=== PATIENT | female | born 1985 | race Caucasian/White ===

== ENCOUNTER 2020-08-25 00:57 | Observation (INO) | payer OTHER ==
[~2020-08-25] VITALS: Ht 157.5 cm; Wt 59.0 kg
[2020-08-25 01:06] VITALS: BP 99/42
[2020-08-25 01:33] LABS: URINE BILIRUBIN NEGATIVE (Negative); URINE BLOOD NEGATIVE (Negative); URINE CLARITY CLEAR; URINE COLOR YELLOW; URINE GLUCOSE-RANDOM NEGATIVE (Negative); URINE KETONES NEGATIVE (Negative); URINE LEUKOCYTES-REFLEX NEGATIVE (Negative); URINE NITRITE-REFLEX NEGATIVE (Negative); URINE PROTEIN NEGATIVE (Negative); URINE SPECIFIC GRAVITY 1.025 (1.005-1.030); URINE UROBILINOGEN 0.2 E.U./dl (0.2-1.0)
[2020-08-25 02:56] LABS: HEMATOCRIT 34.6 % (37.0-47.0); HEMOGLOBIN 11.4 gm/dL (12.0-15.0); MCH 30.1 pg (26.0-34.0); MCV 91.4 fL (80.0-100.0); MPV 9.5 fl. (7.2-11.1); NUCLEATED RBCS 0 /100WBC; PLATELET COUNT* 193 thou/uL (150-400); RBC 3.79 mil/uL (4.20-5.00); RDW-CV 14.2 % (10.5-14.5)
[2020-08-25 03:07] LABS: CALCIUM 8.5 mg/dL (8.5-10.1); CREATININE 0.7 mg/dL (0.6-1.3); POTASSIUM 3.9 mmol/L (3.5-5.1)
[2020-08-25 03:11] LABS: ALBUMIN 3.6 g/dL (3.4-5.0); TOTAL BILIRUBIN 0.3 mg/dL (<0.1-1.0); TOTAL PROTEIN 7.3 g/dL (6.4-8.2)
[2020-08-25 07:12] LABS: ABSOLUTE LYMPHOCYTES 1.7 thou/uL (0.8-5.3); ABSOLUTE MONOCYTES 0.6 thou/uL (0.0-1.2); ABSOLUTE NEUTROPHILS 11.8 thou/uL (1.6-8.1)
[2020-08-25 07:13] LABS: PLATELET ESTIMATE ADEQUATE
[2020-08-25 08:34] VITALS: BP 100/53
[2020-08-25] MEDS ORDERED: OXYCODONE HCL 55 MG PO (14:32)
[2020-08-25 14:35] VITALS: BP 100/53
--- NOTE | 2020-08-26 19:56 | OP ---
[address] [address] OPERATIVE REPORT Name: JESSA NICOLE Room: [address] Samuel#: [id number] Admission: 08/25/20 Attend Phys: Araceli Malcolm Discharge: Date of : 89 Report #: [id number] THIS REPORT FOR: //name// cc: JARAD Connell family physician/PCP JARAD Connell family physician/PCP ~ CC: JARAD physician/PCP Oliver Saleem DICTATED BY: Rio Goodrich DO DATE OF SERVICE: 08/25/2020 PREOPERATIVE DIAGNOSIS: Acute appendicitis. POSTOPERATIVE DIAGNOSIS: Acute appendicitis with localized peritonitis. SURGEON: Oliver Saleem DO THEORETICAL PHYSICIST: Rio Goodrich, PGY5 OPERATION PERFORMED: Laparoscopic appendectomy. ANESTHESIA: General, local. ESTIMATED BLOOD LOSS: 10 mL. SPECIMEN: Appendix. COMPLICATIONS: None. INDICATIONS: The patient is a 34-year-old female that presented to the Emergency Department with right-sided abdominal pain and nausea. She was found on CT to have findings of acute appendicitis. She was informed of the risks and benefits of laparoscopic appendectomy with risks including but not limited to bleeding, infection, bowel injury, bladder injury. She understood these risks and decided to proceed with surgery. DESCRIPTION OF PROCEDURE: After informed consent was obtained, the patient was brought to the operating room and placed in supine position. SCDs were on and running. Preoperative Zosyn had been delivered in ED. The patient was induced with general anesthesia. The patient was prepped and draped in the usual sterile fashion. A surgical pause was held to confirm proper patient and procedure. 0.5% Marcaine was injected beneath the umbilicus. The infraumbilical skin was elevated with 2 Adson's and incised with an 11 blade. Dissection was bluntly carried down to the fascia. Fascia was incised using cautery and elevated with 2 Kochers. Peritoneum was blunt[place] [address] OPERATIVE REPORT Name: JESSA NICOLE Room: [address] Altaf Baker#: [id number] Admission: 08/25/20 Attend Phys: Araceli Malcolm Discharge: Date of : 89 Report #: [id number] Robyn; 0 [address] was used to place stay sutures on either side of the fascia. The fascia was slightly extended to accommodate the 12 mm Arsenio trocar, which was introduced. Abdomen was insufflated. The patient was positioned in the head down, left side down position. The camera was introduced and a brief exploration of the abdomen was noted. The appendix was noted to be dilated in the right lower quadrant. There was some surrounding murky fluid. The pelvis was examined. There was a small amount of fluid in the pelvis. There were no inguinal hernias bilaterally. Attention was turned towards the pelvis. A 5 mm suprapubic port was placed under direct visualization. An additional 5 mm port was also placed under direct visualization in the left lower quadrant. Laparoscopic graspers were used to reflect the cecum medially which exposed the dilated and inflamed appendix. This was reflected medially as well. The mesoappendix was grasped. There was some peritoneal lateral attachments of the appendix, which were taken down using hook cautery. Once this was completely free, a [place] was used to make a window through the mesoappendix at the base of the appendix. A 45 mm purple load [employer] Endo-MEGAN stapler was fired across the base of the appendix. The appendix was elevated. An additional purple load was fired across the mesoappendix. There were some small focal bleeders at the staple lines, which were controlled with hook cautery. The right lower quadrant was thoroughly suctioned and irrigated. The pelvis was suctioned. Staple lines were hemostatic. The right lower quadrant was clean and there was no further purulence. The staple lines were inspected and continued to remain hemostatic. The cecum was reflected back to its normal anatomical position. The patient was leveled out. Ports were removed under direct visualization. The specimen had been placed within an EndoCatch bag and removed through the umbilical incision. Previous stay sutures were elevated. An additional jpyycy-yw-aimio using 0 Vicryl was used to close the fascia. The previous stay sutures were closed over the [id number]. This wound was closed using 4-0 Monocryl. Remainder of skin incisions were closed using 4-0 Monocryl. Specimen was handed off. All counts were correct. Wounds were cleansed and dressed with Dermabond. The patient was emerged from anesthesia and transferred to PACU in stable condition. <ELECTRONICALLY SIGNED> By: Oliver Saleem DO 08/26/20 1956 [id number] Saleem DO /nt
== END 2020-08-25 15:15 | disposition home or self-care (01) ==
LOC: M.ERS 00:57 → M.TBA-ER 12:02
PROVIDERS: Personal Emergency Response Attendant; ADMIT Surgery; ATTEND Surgery
DX: K35.80 Unspecified acute appendicitis (principal); Z98.890 Other specified postprocedural states